=== PATIENT | female | born 1985 ===

== ENCOUNTER 2023-08-19 16:07 | Emergency (ER) | payer OTHER, SELFPAY ==
[2023-08-19 16:15] VITALS: BP 169/89; PULSE 105; RESP 18; TEMP 37.3; O2SAT 99; BMI 33.4
[2023-08-19 17:38] LABS: INR 0.9 (0.9-1.3); Prothrombin Time 10.7 SECONDS (9.4-12.5)
[2023-08-19 17:39] LABS: Add Manual Diff / Slide Review NO; Basophils Absolute Auto 100 /uL (0-100); Basophils Percent Auto 1.3 % (0-2); Eosinophils Absolute Auto 100 /uL (0-450); Hematocrit 38.8 % (36-46); Hemoglobin 13.4 g/dL (12.0-16.0); Lymphocytes Absolute Auto 2400 /uL (1100-4500); Lymphocytes Percent Auto 33.8 % (25-40); Mean Corpuscular HGB Conc 34.4 % (30-36); Mean Corpuscular Hemoglobin 29.9 PG (26-34); Mean Corpuscular Volume 86.9 fL (80-100); Monocytes Absolute Auto 500 /uL (0-900); Monocytes Percent Auto 7.7 % (3-14); Neutrophils Absolute Auto 3900 /uL (1500-7000); Neutrophils Percent Auto 55.2 % (50-75); Platelet Count 322 X10^3/uL (150-400); Red Blood Cell Count 4.46 X10^6/uL (4.0-5.2); Red Cell Distribution Width 12.9 % (11.6-14.8); White Blood Cell Count 7.1 X10^3/uL (4.5-11.0)
--- NOTE | 2023-08-19 17:53 | DI.US.S_ITS ---
PROCEDURE: US PERIPH VENOUS UP EXTREM LT INDICATIONS: hematoma TECHNIQUE: Real-time imaging, as well as color and pulse Doppler interrogation, was performed of the upper extremity deep veins from the inferior neck to the antecubital fossa. COMPARISON: None. FINDINGS: The internal jugular vein, visualized portions of the subclavian vein, axillary, and brachial veins are free of intraluminal thrombus. Where physically possible, the veins are normally compressible. Color and pulse Doppler demonstrate normal intraluminal flow, with expected phasicity and pulsatility. Additional scanning of the cephalic and basilic veins of the superficial system demonstrates normal compressibility, without thrombus. Within the area of clinical concern within the proximal left upper extremity, there is poorly defined at edematous soft tissue seen, with mildly increased vascularity. The largest area of fluid measures up to 1.2 cm. IMPRESSION: No findings of upper extremity deep venous thrombosis can be seen. Within the area of clinical concern within the proximal left upper extremity, there is generalized soft tissue edema and mildly increased enhancement. No drainable abscess is seen. Note: Concordant preliminary findings given by the gold leaf roller upon the completion of the examination to Dr. Jacobson at 6:30 p.m. on August 19, 2023. Dictated by: Darien Grimaldo M.D. on 08/19/2023 at 17:57 Approved by: Darien Grimaldo M.D. on 08/19/2023 at 17:59
[2023-08-19 18:01] LABS: Alanine Aminotransferase 11 IU/L (<35); Albumin Globulin Ratio 1.2 (1.0-2.8); Alkaline Phosphatase 69 U/L (38-126); Aspartate Aminotransferase 22 IU/L (14-36); BUN Creatinine Ratio 9.9 (6-22); Bilirubin Total 0.5 mg/dL (0.2-1.3); Blood Urea Nitrogen 7 mg/dL (7-17); Calcium 9.2 mg/dL (8.4-10.2); Carbon Dioxide 21 mmol/L (22-32); Chloride 108 mmol/L (98-107); Estimated Glomerular Filt Rate > 60 mL/min (>60); Globulin 3.3 g/dL (1.7-4.1); Glucose 98 mg/dL (70-100); HEMOLYSIS < 15 (0-50); Potassium 3.8 mmol/L (3.4-5.1); Sodium 136 mmol/L (137-145); Total Protein 7.3 g/dL (6.3-8.2)
[2023-08-19 18:02] LABS: Lactate (Lactic Acid) 0.8 mmol/L (0.7-2.1)
[2023-08-19 18:13] LABS: NT-proBNP (BNP-Adult 18+) 167 pg/mL (<125); Troponin I < 0.012 ng/mL (0.01-0.034)
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
[2023-08-19 18:47] VITALS: BP 146/85; PULSE 94; RESP 13; TEMP 36.9; O2SAT 99
[2023-08-19] MEDS: TRAMADOL 50 MG TABLET PO (18:53)
[2023-08-19] MEDS: TRAMADOL 50 MG PREPACK 1 BOTTLE MISC (18:54)
== END 2023-08-19 19:33 | disposition home or self-care (01) ==
PROVIDERS: Emergency Medicine; Emergency Provider Emergency Medicine
DX: S40.021A Contusion of right upper arm, initial encounter (principal)
CPT/HCPCS: 80053; 83605; 83880; 84484; 85025; 85610; 93971; 99283; 99284